=== PATIENT | male | born 1995 | race Caucasian/White ===

== ENCOUNTER 2024-09-22 22:28 | Emergency (ER) | payer MEDICARE, SELFPAY ==
[2024-09-22 22:37] VITALS: BP 146/84
[2024-09-23] VITALS: BP 106/67
[2024-09-23 00:03] VITALS: BMI 32.6
--- NOTE | 2024-09-23 00:50 | ED.GENMED ---
History of Present Illness
General
Chief Complaint: Dental Problem
Source: patient
Exam Limitations: none
Time Seen by Provider: 09/22/24 23:33
Nursing documentation reviewed up to this point in time: agreed with
History of Present Illness
History of Present Illness:
Patient is a 29-year-old male presents to the ER for evaluation. Patient has a history of asked Buerger's anxiety bipolar disorder and presents to the ER for left-sided lower tooth pain. Patient is in the process of seeing an oral surgeon and has
an appointment scheduled in 2 days. He has been evaluated by his dentist and has multiple teeth that need extraction to his left lower region. He completed amoxicillin however mom reports patient's pain is not being relieved with Motrin and
Tylenol. Mom reports no fevers. No difficulty breathing patient has been drinking water which has helped a little.
Past History
Past History
ED Past Medical History: Psychiatric and Other (Colitis)
ED Past Surgical History: Other (colon polyp removal, ear tube)
Social History
Tobacco: Non-smoker
Alcohol: None
Drug: None
Personal: Single
Living: alone
Review of Systems
Review of Systems
Allergies reviewed?: Yes
All Other Systems: ROS reviewed and negative except as documented in HPI and ROS
Constitutional: Reports no symptoms
EENT: Reports other (left lower dental pain no facial swelling )
Respiratory: Reports no symptoms
Skin: Reports no symptoms
Neurological: Reports no symptoms
Psychiatric: Reports no symptoms
Phy Exam
General Physical Exam
General Presentation: no apparent distress
General age: appears stated age
General Skin: warm and dry
General Habitus: normal
General Mental: alert
General Hydration: appears well hydrated
ENT Exam
ENT Exam: EOMI, neck supple and other (Left lower teeth with obvious cavities no trismus no fluctuance or gum swelling)
Neurological Exam
Neurological Exam: alert and oriented x3
Musculoskeletal Exam
Musculoskeletal Exam: full ROM
Skin Exam
Skin Exam: normal color and warm/dry
Psychiatric Exam
Psychiatric Exam: normal mood/affect
Course
Orders/Labs/Results
Orders:
Orders
09/23/24 00:52
Electrocardiogram (*1) Stat
Reason for Study: Abdominal Pain
EKG- Treatment ONCE
Amoxicillin [Amoxil] 500 mg PO NOW STA
09/23/24 00:54
Oxycodone [Roxicodone] 5 mg PO NOW STA
Vital Signs
Initial and Last Documented VS:
Initial Vital Signs
Temp Pulse Resp BP Pulse Ox
98.1 F 88 16 146/84 99
09/22/24 22:37 09/22/24 22:37 09/22/24 22:37 09/22/24 22:37 09/22/24 22:37
Last Documented Vital Signs
Temp Pulse Resp BP Pulse Ox
98.1 F 88 16 121/75 98
09/22/24 22:37 09/22/24 22:37 09/22/24 22:37 09/23/24 01:10 09/23/24 00:58
MDM/Problems Addressed
Differential Diagnosis Includes:
Not limited dental pain
MDM/Problems Addressed:
Patient presents with mom for worsening dental pain he is in the process of seeing an oral surgeon and is scheduled to see oral surgeon in 2 days. He completed antibiotics however has had worsening pain despite ibuprofen and Tylenol. No evidence
of abscess or worsening infection on exam he is nontoxic-appearing afebrile no meningismus no fluctuance or gum swelling.
Will restart antibiotics and will give dose of oxycodone here in the ER and a prescription to go home with. Patient is on Lexapro Trileptal and risperidone reviewed with pharmacy for interactions.
Discussed with mom to try and alternate Tylenol ibuprofen however if needed may use narcotic until seen in 2 days
*Critical Care Note
Total Time (30-74mins, 75-104mins- exclusive of procedures): Not Applicable
ED Attending Note
-
Portions of this chart may have been created with voice recognition software.� Occasional wrong word or��sound alike� substitutions may have occurred due to the inherent limitations of voice recognition software.
Discharge Plan
Departure
Patient Disposition: Home (Routine Discharge)
Date of Disposition: 09/23/24
Time of Disposition: 01:44
Patient with high blood pressure during this ER visit?: Yes
Condition: Fair
Covid-19: Not Applicable
Discharge Problem:
Pain, dental
Instructions: Dental Pain (DC), BLOOD PRESSURE
Prescriptions:
New
oxycodone 5 mg capsule
5 mg PO Q8H PRN (Reason: Pain) Qty: 10 0RF
amoxicillin 875 mg tablet
875 mg PO BID Qty: 10 0RF
No Action
oxcarbazepine [Trileptal] 300 MG tablet
300 mg PO DAILY
risperidone 2 MG tablet
3 mg PO HS
oxcarbazepine 300 MG tablet
600 mg PO HS
fluoxetine 10 MG capsule
10 mg PO DAILY
metronidazole 500 MG tablet
500 mg PO TID Qty: 21 0RF
levofloxacin 500 MG tablet
500 mg PO DAILY Qty: 7 0RF
Referrals:
KARLA ARMSTRONG MD [Family Provider] -
Activity Restrictions/Additional Instructions:
Follow-up with oral surgeon as scheduled. As discussed you may continue ibuprofen 600 mg every 8 hours with food and alternate with Tylenol. If needed a prescription for oxycodone, pain education was sent to the pharmacy take as directed. This
may cause constipation you may take [id number]'s Colace and Senokot to prevent constipation. Be sure to stay well-hydrated return if any worsening of symptoms
Interventions
Interventions:
*Risk Screen - Suicide Last Done: 09/22/24 22:37
*General Assessment Last Done: 09/22/24 22:37
*Neglect/Abuse Screening Last Done: 09/22/24 22:37
*ED- Fall Risk Assessment Last Done: 09/22/24 22:37
*ED COVID-19 Vaccine History Last Done: 09/22/24 22:37
Discharge Date and Time
Print Language: [place] CITIZEN
[2024-09-23] MEDS: AMOXIL 500 MG PO (01:03)
[2024-09-23] MEDS: ROXICODONE 5 MG PO (01:03)
[2024-09-23 01:10] VITALS: BP 121/75
[2024-09-23] MEDS: TYLENOL 1000 MG PO (01:56)
[2024-09-23 02:00] VITALS: BP 116/76
== END 2024-09-23 02:08 | disposition home or self-care (01) ==
LOC: EMR 22:28
PROVIDERS: EMERGENCY PHYSICIAN Emergency Medicine; FAMILY PHYSICIAN Family Medicine
DX: K08.89 Other specified disorders of teeth and supporting structures (principal); F41.9 Anxiety disorder, unspecified; F31.9 Bipolar disorder, unspecified; Z86.0100 Personal history of colon polyps, unspecified
CPT/HCPCS: 99283; 93005

== ENCOUNTER 2025-02-05 13:43 | Emergency (ER) | payer MEDICARE, SELFPAY ==
[2025-02-05 13:47] VITALS: BP 124/92
[2025-02-05 18:04] VITALS: BP 110/69
--- NOTE | 2025-02-05 18:46 | ED.GENMED ---
History of Present Illness
General
Chief Complaint: Breathing Problem
Source: patient
Time Seen by Provider: 02/05/25 17:42
History of Present Illness
History of Present Illness:
Note:
CHIEF COMPLAINT(S)
Progressive cough with blood-tinged sputum.
HISTORY OF PRESENT ILLNESS
The patient reports progressive coughing with specks of blood lasting several weeks, worsening over time. Associated symptoms include dyspnea, particularly upon waking, described as a sensation of being unable to fully breathe, likened to inhaling
water in a pool. There are also complaints of chest burning attributed to airway irritation. The patient describes the cough as a dry, tick-like cough. There have been no reports of significant fever or systemic illness. The patient denies any
changes in health environment, having experienced the cough in multiple locations. The patient also reports a previous incident of hematuria, investigated with no significant findings.
ADDITIONAL HISTORY OBTAINED FROM SOURCES OTHER THAN THE PATIENT
Per family member, the patient has experienced a medication change from Risperdal to Abilify in recent weeks for management of bipolar disorder, depression, Asperger syndrome, and schizoaffective disorder.
SOCIAL DETERMINANTS AFFECTING HEALTH
The patient previously stayed with family for a short duration, which did not alleviate the symptoms, indicating no environmental causation at home affecting health status.
MEDICATIONS
- Abilify (aripiprazole): Recently initiated in place of Risperdal.
- Albuterol inhaler: To be used every four hours as needed for cough or dyspnea.
REVIEW OF SYSTEMS
- General: No fever reported by the patient.
- Respiratory: Progressive cough, difficulty breathing, with specks of blood in sputum.
- Ear, Nose, and Throat: Dry, tick-like cough present.
PHYSICAL EXAM
General: Alert, no acute distress.
Skin: Warm, dry.
Head: Normocephalic, atraumatic.
Neck: Supple, trachea midline.
Eye Ears, nose, mouth and throat: Oral mucosa moist.
Cardiovascular: Normal peripheral perfusion, No edema.
Respiratory: Airways clear, no wheezes; oxygen saturation 98%.
Gastrointestinal: Abdomen nondistended.
Back: Normal range of motion, Normal alignment.
Musculoskeletal: Normal range of motion, normal strength.
Neurological: Alert and oriented to person, place, time, and situation, No focal neurological deficit observed.
Psychiatric: Cooperative, appropriate mood & affect.
PLAN
- Initiate a short course of oral corticosteroids to reduce airway inflammation.
- Prescribe a daily antihistamine such as Lois or Zyrtec, monitoring for any side effects.
- Recommend use of a humidifier or slightly open window at night to prevent mucus plugging.
- Albuterol inhaler every four hours as needed for symptom relief.
- Follow-up if symptoms persist or worsen, or in case of any adverse effects from medications.
DIFFERENTIAL DIAGNOSIS
The Differential Diagnosis includes, in no particular order and is not limited to:
1. Bronchitis (allergic or infectious)
2. Asthma exacerbation
3. Post-nasal drip
4. Gastroesophageal reflux disease (GERD) with aspiration
5. Allergic rhinitis
6. Medication side effects
7. Pulmonary embolism
8. Pneumonia
9. Primary lung malignancy
10. Tuberculosis
Disposition:
SUMMARY OF ENCOUNTER
The patient was evaluated in the emergency department due to a progressive cough with blood-tinged sputum, dyspnea, and chest burning. During the examination, the patient was alert and displayed no acute distress. Respiratory examination revealed
clear lung sounds, normal pulse oximetry, and regular heart rate. A chest x-ray was performed and found to be normal with no infiltrates. Given the absence of acute respiratory distress and normal imaging, no blood laboratory studies were deemed
necessary at this time. Family members were present during the visit and involved in the discussion regarding the patients condition. The decision for outpatient management was supported by the clear chest x-ray, normal pulse oximetry, and stable
vital signs.
DISPOSITION
Discharge
PLAN
- Recommend outpatient follow-up for further evaluation and monitoring.
- Continue using albuterol inhaler as needed for relief of pulmonary symptoms.
- Initiate prescribed oral corticosteroids to reduce inflammation.
- Encourage maintaining environmental modifications, such as the use of a humidifier at night, to prevent mucus plugging.
- Advise monitoring for any worsening of symptoms or side effects of new medications, and to return to the emergency department if conditions do not improve.
MEDICATION RECONCILIATION
- Albuterol inhaler: Continue as needed every four hours for cough or dyspnea.
- Initiate oral corticosteroids to decrease airway inflammation.
MEDICAL DECISION MAKING
1. Number and Complexity of Problems Addressed: Chronic conditions affecting care include bipolar disorder, depression, Asperger syndrome, and schizoaffective disorder. Differential diagnosis considered:
- Bronchitis (allergic or infectious)
- Asthma exacerbation
- Post-nasal drip
- Gastroesophageal reflux disease (GERD) with aspiration
- Allergic rhinitis
- Medication side effects
- Pulmonary embolism
- Pneumonia
- Primary lung malignancy
- Tuberculosis
2. Data:
Category 1:
- Non-emergency department records reviewed: Outpatient pharmacy records and details of recent medication change obtained from an independent historian (family member).
Category 2:
- My independent interpretation of the chest x-ray shows no infiltrates, consistent with the imaging report.
3. Risk:
- Prescription medication was prescribed: Albuterol inhaler.
- Consideration of Admission/Observation: Escalation of care including admission/observation was considered given the complexity and risk of the patients presenting complaint, exam findings, and their underlying comorbidities. However, ultimately I
feel the patient is safe for outpatient management with close follow-up. Reasoning: Work-up reassuring, does not reveal any acute life/organ-threatening processes, patients symptoms well controlled upon reevaluation, reexamination is reassuring,
vitals are stable, patient agreeable with discharge, reliable for follow-up.
DIAGNOSIS
- Cough with hemoptysis, R05.2
- Dyspnea, R06.00
Past History
Past History
ED Past Medical History: Psychiatric and Other (Colitis)
ED Past Surgical History: Other (colon polyp removal, ear tube)
Social History
Tobacco: Non-smoker
Alcohol: None
Drug: None
Personal: Single
Living: alone
Phy Exam
Physical Exam
Physical Exam:
.
Course
Orders/Labs/Results
Orders:
Orders
02/05/25 13:50
Electrocardiogram (*1) Urgent
Reason for Study: Chest Pain
EKG- Treatment ONCE
CR Chest - 2 Views Urgent
Comment:
Reason For Exam: sob
02/05/25 18:46
Prednisone [Deltasone] 50 mg PO NOW STA
02/05/25 13:50
02/05/25 13:50
Vital Signs
Initial and Last Documented VS:
Initial Vital Signs
Pulse Resp BP Pulse Ox
87 20 124/92 99
02/05/25 13:47 02/05/25 13:47 02/05/25 13:47 02/05/25 13:47
Last Documented Vital Signs
Pulse Resp BP Pulse Ox
69 17 110/69 96
02/05/25 18:04 02/05/25 18:04 02/05/25 18:04 02/05/25 18:04
*Pulse Oximetry
SaO2: 96
Oxygen Mode of Delivery: Room air
Patient hypoxic: no
*Critical Care Note
Total Time (30-74mins, 75-104mins- exclusive of procedures): Not Applicable
ED Attending Note
-
Portions of this chart may have been created with voice recognition software.� Occasional wrong word or��sound alike� substitutions may have occurred due to the inherent limitations of voice recognition software.
Discharge Plan
Departure
Patient Disposition: Home (Routine Discharge)
Date of Disposition: 02/05/25
Time of Disposition: 18:46
Patient with high blood pressure during this ER visit?: No
Discharge Problem:
Acute bronchitis
Instructions: Acute Bronchitis, Adult (DC)
Prescriptions:
New
prednisone 10 mg Tablet
See Rx Instructions .ROUTE .COMPLEX Qty: 30 0RF
Rx Instructions:
Take By Mouth:
40 mg daily x3 days, 30 mg daily x3 days,
20 mg daily x3 days, 10 mg daily x3 days.
albuterol sulfate [Ventolin HFA] 90 mcg/actuation HFA aerosol inhaler
2 puff inhalation Q6H PRN (Reason: shortness of breath or wheezing) Qty: 6.7 0RF
No Action
oxcarbazepine [Trileptal] 300 MG tablet
300 mg PO DAILY
risperidone 2 MG tablet
3 mg PO HS
oxcarbazepine 300 MG tablet
600 mg PO HS
fluoxetine 10 MG capsule
10 mg PO DAILY
metronidazole 500 MG tablet
500 mg PO TID Qty: 21 0RF
levofloxacin 500 MG tablet
500 mg PO DAILY Qty: 7 0RF
oxycodone 5 mg capsule
5 mg PO Q8H PRN (Reason: Pain) Qty: 10 0RF
amoxicillin 875 mg tablet
875 mg PO BID Qty: 10 0RF
Activity Restrictions/Additional Instructions:
Please see your doctor in the next 1 week if symptoms persist. Consider using a daily antihistamine as discussed. Return immediately for shortness of breath, fevers, worsening symptoms or any other concerns
Interventions
Interventions:
*Risk Screen - Suicide Last Done: 02/05/25 13:47
*General Assessment Last Done: 02/05/25 13:47
*ED- Fall Risk Assessment Last Done: 02/05/25 13:47
*ED COVID-19 Vaccine History Last Done: 02/05/25 13:47
Discharge Date and Time
Print Language: SAMO[place]
[2025-02-05] MEDS: DELTASONE 50 MG PO (18:51)
== END 2025-02-05 18:59 | disposition home or self-care (01) ==
LOC: EMR 13:43
PROVIDERS: EMERGENCY PHYSICIAN Emergency Medicine; FAMILY PHYSICIAN Family Medicine
DX: J20.9 Acute bronchitis, unspecified (principal); F25.9 Schizoaffective disorder, unspecified; F31.9 Bipolar disorder, unspecified; F84.5 Asperger's syndrome
CPT/HCPCS: 99284; 71046; 93005